=== PATIENT | male | born 1935 | race American Indian/Alaskan Native ===

== ENCOUNTER 2016-07-22 10:32 | Outpatient (CLI) | payer OTHER ==
--- NOTE | 2016-07-23 14:47 | Vascular Lab Report ---
Right Lower Extremity Venous Duplex Study: Reason for Exam: Right leg swelling and. Comments on the Right: All veins visualized are freely compressible without evidence of internal echogenicity. Flow is spontaneous and phasic throughout. No evidence of acute or chronic thrombus is seen in any of the vessels visualized. Comments on the Left: A limited duplex study was done of the proximal veins of the left lower extremity. All veins visualized are freely compressible without evidence of internal echogenicity. Flow is spontaneous and phasic throughout. No evidence of acute or chronic thrombus is seen in any of the vessels visualized. Impression: No evidence of acute or chronic deep venous thrombosis in the right lower extremity.
== END 2016-07-22 10:33 | disposition home or self-care (01) ==
LOC: VAS 10:32
PROVIDERS: ATTEND Hospitalist
DX: R22.41 Localized swelling, mass and lump, right lower limb (principal)

== ENCOUNTER 2017-11-03 10:12 | Emergency (ER) | payer MEDICARE, OTHER ==
--- NOTE | 2017-11-03 13:16 | Emergency Department Report ---
Radha Doc - Documentation Documentation: Patient presents to [facility] chiefly lower back pain that radiates into his legs bilaterally. Patient states he's had this back pain since February and recently had an MRI that comes emergency Department wanted to know what the MRI results are. Patient has stated MRI disc at hand but states he does not have the report. Patient has a follow-up appointment with his orthopedist surgeon on 11/18/2017 for those results. He denies any loss of stool or issues with his bladder. Also denies any numbness to his lower extremities. No abdominal pain. The plan is to have director of social media marketing come see the patient because he states he is not able to go home because of his back pain. Care will be turned over to the Midlevel provider with me as consultation
[2017-11-03] MEDS ORDERED: NORCO 5/325 PO ONE (14:49)
[2017-11-03] MEDS ORDERED: ZOFRAN ODT PO ONE (14:49)
--- NOTE | 2017-11-03 14:49 | Emergency Department Report ---
ED General Adult HPI - General Chief complaint: Back Pain/Injury Stated complaint: RT LEG PAIN/BACK Time Seen by Provider: 11/03/17 12:56 Source: patient, EMS Mode of arrival: Wheelchair Limitations: No Limitations - History of Present Illness Initial comments: Patient presents to the emergency department with a chief complaint of back pain that radiates into his legs. Patient states she's had back pain since February and has been seen by orthopedist surgeon with the MRI been done within the last week. Patient states that he is able to control his bladder and stool and denies any numbness of his legs. Patient states he comes to the ED today with the CD of his MRI to try to find out whats wrong. Patient has a follow-up appointment with his orthopedist surgeon on November 18 of this year. Not having relief with home medications -: Gradual Location: back Radiation: other (bilateral legs bilateral legs) Severity scale (0 -10): 5 Quality: sharp Improves with: medication, rest Worsens with: movement Associated Symptoms: denies other symptoms Treatments Prior to Arrival: none - Related Data Previous Rx's Medication Instructions Recorded Last Taken Type Aspirin EC [Aspirin Enteric Coated 81 mg PO QDAY #30 tablet. 03/22/16 Unknown Rx TAB] Diltiazem Cd [Cardizem CD] 240 mg PO QDAY #30 capsule 03/22/16 Unknown Rx Omeprazole 20 mg PO QDAY #30 capsule. 03/22/16 Unknown Rx HYDROcodone/APAP 5-325 [[place] 1 each PO Q6HR PRN #8 tablet 11/03/17 Unknown Rx 5/325] Allergies Allergy/AdvReac Type Severity Reaction Status Date / Time No Known Allergies Allergy Unverified 03/20/16 14:10 ED Review of Systems ROS: Stated complaint: RT LEG PAIN/BACK Other details as noted in HPI Comment: All other systems reviewed and negative Constitutional: denies: chills, fever Eyes: denies: eye pain, eye discharge, vision change ENT: denies: ear pain, throat pain Respiratory: denies: cough, shortness of breath, wheezing Cardiovascular: denies: chest pain, palpitations Endocrine: no symptoms reported Gastrointestinal: denies: abdominal pain, nausea, diarrhea Genitourinary: denies: urgency, dysuria Musculoskeletal: back pain. denies: joint swelling, arthralgia Skin: denies: rash, lesions Neurological: denies: headache, weakness, paresthesias Psychiatric: denies: anxiety, depression Hematological/Lymphatic: denies: easy bleeding, easy bruising ED Past Medical Hx - Past Medical History Previous Medical History?: Yes Hx Hypertension: Yes Hx GERD: Yes Hx Arthritis: Yes - Surgical History Past Surgical History?: Yes Additional Surgical History: Prostate - Social History Smoking Status: Current Every Day Smoker Substance Use Type: Alcohol - Medications Home Medications: Home Medications Medication Instructions Recorded Confirmed Last Taken Type Aspirin EC [Aspirin Enteric Coated 81 mg PO QDAY #30 tablet. 03/22/16 Unknown Rx TAB] Diltiazem Cd [Cardizem CD] 240 mg PO QDAY #30 capsule 03/22/16 Unknown Rx Omeprazole 20 mg PO QDAY #30 capsule. 03/22/16 Unknown Rx HYDROcodone/APAP 5-325 [[place] 1 each PO Q6HR PRN #8 tablet 11/03/17 Unknown Rx 5/325] ED Physical Exam - General Limitations: No Limitations ED Course Vital Signs 11/03/17 10:44 Temperature 97.7 F Pulse Rate 76 Respiratory 16 Rate Blood Pressure 135/91 O2 Sat by Pulse 97 Oximetry ED Medical Decision Making - Medical Decision Making When the patient was asked about his treatment go for today's visit to the emergency department he stated that he would like to be admitted to his back pain goes away. I discussed with patient that since his back pain has been present since February and he recently had a MRI results sent to his orthopedist surgeon that will probably do best course for follow-up. I did contact social science research assistant to provide the patient with resources for home physical therapy or other modalities that might be of help. Critical care attestation.: If time is entered above; I have spent that time in minutes in the direct care of this critically ill patient, excluding procedure time. ED Disposition Clinical Impression: Back pain Disposition: DC- TO HOME OR SELFCARE Is pt being admited?: No Does the pt Need Aspirin: No Condition: Stable Instructions: Back Pain (ED) Additional Instructions: Return if worse Prescriptions: HYDROcodone/APAP 5-325 [[place] 5/325] 1 each PO Q6HR PRN #8 tablet PRN Reason: Pain Referrals: GOLDIE JOHNSON MD [Staff Physician] - 3-5 Days Time of Disposition: 14:52
[2017-11-03 15:10] VITALS: BP 131/90
== END 2017-11-03 15:08 | disposition home or self-care (01) ==
LOC: ED 10:12
DX: M54.9 Dorsalgia, unspecified (principal); M79.604 Pain in right leg; M79.605 Pain in left leg; I10 Essential (primary) hypertension; K21.9 Gastro-esophageal reflux disease without esophagitis; M19.90 Unspecified osteoarthritis, unspecified site; F17.200 Nicotine dependence, unspecified, uncomplicated; Z79.899 Other long term (current) drug therapy; Z79.82 Long term (current) use of aspirin
CPT/HCPCS: 99283; Q0162

== ENCOUNTER 2020-11-28 17:00 | Emergency (ER) | payer OTHER ==
--- NOTE | 2020-11-28 17:38 | Event Note ---
ED Screening Note ED Screening Note: Patient presents for frequent falls He states today he fell and hit his head He is also complaining of low back pain that radiates down his left leg and left hip pain This initial assessment/diagnostic orders/clinical plan/treatment(s) is/are subject to change based on patients health status, clinical progression and re- assessment by fellow clinical providers in the ED. Further treatment and workup at subsequent clinical providers discretion. Patient/guardian urged not to elope from the ED as their condition may be serious if not clinically assessed and managed. Initial orders include: Labs, CT, x-ray
--- NOTE | 2020-11-28 18:02 | XRay Report ---
LEFT HIP 2 VIEW(S) INDICATION / CLINICAL INFORMATION: fall, left hip pain COMPARISON: None available. FINDINGS: BONES / JOINT(S): No acute fracture or subluxation. No significant arthritis. SOFT TISSUES: No significant abnormality. ADDITIONAL FINDINGS: None. Signer Name: Nba Melvin DO Signed: 11/28/2020 5:58 PM Workstation Name: [id number]
[2020-11-28 18:40] LABS: Basophils % (Auto) 0.3 % (0.0-1.8); Eosinophils % (Auto) 0.1 % (0.0-4.3); Hematocrit 32.8 % (35.5-45.6); Hemoglobin 10.5 gm/dl (11.8-15.2); Lymphocytes # (Auto) 0.6 K/mm3 (1.2-5.4); Lymphocytes % (Auto) 4.9 % (13.4-35.0); Mean Corpuscular HGB Conc 32 % (32-34); Mean Corpuscular Volume 75 fl (84-94); Monocytes # (Auto) 0.6 K/mm3 (0.0-0.8); Monocytes % (Auto) 4.9 % (0.0-7.3); Platelet Count 227 K/mm3 (140-440); Red Blood Count 4.36 M/mm3 (3.65-5.03); Red Cell Distribution Width 17.5 % (13.2-15.2)
--- NOTE | 2020-11-28 18:57 | Cat Scan Report ---
NONENHANCED CT SCAN OF THE HEAD: INDICATION / CLINICAL INFORMATION: 84 years Male; frequent falls, fell and hit head today. TECHNIQUE: Routine CT head without contrast. All CT scans at this location are performed using CT dos e reduction for ALARA by means of automated exposure control. COMPARISON: None. FINDINGS: BRAIN / INTRACRANIAL CONTENTS: No intracranial sequela from the trauma; no scalp hematoma; no air-flu id level in the visualized portions of the paranasal sinuses are middle ear cavity No acute hemorrhage, mass effect, midline shift, hydrocephalus, or acute, large territorial infarct. No chronic infarct or focal atrophy. Normal brain volume and ventricular/sulcal size for age. Conflu ent periventricular low-attenuation areas due to chronic small vessel disease CRANIOCERVICAL JUNCTION: No significant abnormality. ORBITS: No significant abnormality of visualized orbits. SINUSES / MASTOIDS: Mucosal thickening in the right ethmoid air cells ADDITIONAL FINDINGS: None. IMPRESSION: No intracranial sequela from the trauma; No acute focal parenchymal lesion Signer Name: Elke Topete MD Signed: 11/28/2020 6:52 PM Workstation Name: [id number]
[2020-11-28 19:00] LABS: Alanine Aminotransferase 6 units/L (7-56); Albumin 3.9 g/dL (3.9-5); BUN/Creatinine Ratio 17; Blood Urea Nitrogen 17 mg/dL (9-20); Calcium 10.3 mg/dL (8.4-10.2); Hemolysis Index 2
--- NOTE | 2020-11-28 19:01 | Cat Scan Report ---
CT LUMBAR SPINE WITHOUT CONTRAST HISTORY: Low back pain radiating to left leg COMPARISON: None TECHNIQUE: CT images of the lumbar spine were obtained without contrast. Sagittal and coronal reform ats were post-processed.All CT scans at this location are performed using CT dose reduction for ALARA by means of automated exposure control. CONTRAST: None. FINDINGS: Alignment: Normal. No traumatic subluxation. Vertebrae: No fracture; normal contour of the vertebral bodies Disc Spaces: Shallow disc bulge at the L1-L2, L2-L3 and L3-L4 disc levels; at L4-L5 disc level, broad -based bulging disc Facet Joints:No significant abnormality. Additional Findings: None IMPRESSION: 1. No significant abnormality. Signer Name: Elke Topete MD Signed: 11/28/2020 6:57 PM Workstation Name: [id number]
[2020-11-28 19:02] LABS: INR 1.02 (0.87-1.13)
[2020-11-28 19:03] LABS: Partial Thromboplastin Time 35.4 Sec. (24.2-36.6)
[2020-11-29] MEDS ORDERED: ACETAMINOPHEN 500 MG TAB PO ONE (00:16)
--- NOTE | 2020-11-29 07:12 | Emergency Department Report ---
ED Fall HPI - General Chief Complaint: Head Injury Stated Complaint: PAIN IN FOOT/NEEDS MED REFILL Time Seen by Provider: 11/28/20 17:36 Source: patient, EMS Mode of arrival: Wheelchair - History of Present Illness Initial Comments: Chief complaint: "I need my leg to be good." HPI: This is a 84-year-old male with history of SVT, GERD who presents with frequent falls. Patient has left leg left shoulder pain. Moderate pain. Patient use walker at home. He lives alone. His daughter is located in the [facility] area. He arrived via EMS. Additional history obtained from electronic medical record. Initial screening note documented: head trauma back pain hip pain. Patient locates pain in the left thigh left lower leg left foot. MD Complaint: fall -: Last night Fall From: standing Fall Witnessed: no Place Fall Occurred: home Loss of Consciousness: none Prolonged Down Time?: no Symptoms Prior to Fall: none Location: head Location - Extremities: Left: Shoulder, Leg Severity: moderate Context: tripped/slipped Associated Symptoms: denies - Related Data Previous Rx's Medication Instructions Recorded Last Taken Type Aspirin EC [Halfprin EC] 81 mg PO QDAY #30 tablet. 03/22/16 Unknown Rx Omeprazole 20 mg PO QDAY #30 capsule. 03/22/16 Unknown Rx dilTIAZem CD [Cardizem CD] 240 mg PO QDAY #30 capsule 03/22/16 Unknown Rx HYDROcodone/APAP 5-325 [[place] 1 each PO Q6HR PRN #8 tablet 11/03/17 Unknown Rx 5/325] traMADoL [Ultram 50 MG tab] 50 mg PO Q6HR PRN #20 tablet 11/29/20 Unknown Rx Allergies Allergy/AdvReac Type Severity Reaction Status Date / Time No Known Allergies Allergy Unverified 03/20/16 14:10 ED Review of Systems ROS: Stated complaint: PAIN IN FOOT/NEEDS MED REFILL Other details as noted in HPI Comment: All other systems reviewed and negative Constitutional: denies: fever, malaise Respiratory: denies: cough, shortness of breath Cardiovascular: denies: chest pain Musculoskeletal: arthralgia, myalgia Neurological: denies: headache ED Past Medical Hx - Past Medical History Previous Medical History?: Yes Hx Hypertension: Yes Hx GERD: Yes Hx Arthritis: Yes - Surgical History Past Surgical History?: Yes Additional Surgical History: Prostate - Social History Smoking Status: Current Every Day Smoker Substance Use Type: Alcohol - Medications Home Medications: Home Medications Medication Instructions Recorded Confirmed Last Taken Type Aspirin EC [Halfprin EC] 81 mg PO QDAY #30 tablet. 03/22/16 Unknown Rx Omeprazole 20 mg PO QDAY #30 capsule. 03/22/16 Unknown Rx dilTIAZem CD [Cardizem CD] 240 mg PO QDAY #30 capsule 03/22/16 Unknown Rx HYDROcodone/APAP 5-325 [[place] 1 each PO Q6HR PRN #8 tablet 11/03/17 Unknown Rx 5/325] traMADoL [Ultram 50 MG tab] 50 mg PO Q6HR PRN #20 tablet 11/29/20 Unknown Rx ED Physical Exam - General Limitations: No Limitations General appearance: alert, in no apparent distress - Head Head exam: Present: atraumatic, normocephalic - Eye Eye exam: Present: normal appearance - ENT ENT exam: Present: mucous membranes moist - Neck Neck exam: Present: normal inspection, full ROM - Respiratory Respiratory exam: Present: normal lung sounds bilaterally. Absent: respiratory distress, wheezes, rales, rhonchi - Cardiovascular Cardiovascular Exam: Present: regular rate, normal rhythm, normal heart sounds. Absent: systolic murmur, diastolic murmur, rubs, gallop - GI/Abdominal GI/Abdominal exam: Present: soft. Absent: distended, tenderness, guarding, rebound - Extremities Exam Extremities exam: Present: normal inspection - Expanded Lower Extremity Exam Left Hip exam: Present: normal inspection, full ROM. Absent: tenderness, swelling Upper Leg exam: Present: normal inspection, full ROM Knee exam: Present: normal inspection Lower Leg exam: Present: normal inspection, full ROM Ankle exam: Present: normal inspection, full ROM Foot/Toe exam: Present: normal inspection, full ROM - Back Exam Back exam: Present: normal inspection - Neurological Exam Neurological exam: Present: alert, oriented X3 - Psychiatric Psychiatric exam: Present: normal affect, normal mood - Skin Skin exam: Present: warm, dry, intact, normal color. Absent: rash - Other Other exam information: 5/5 strength in the left lower extremity intact patient is able to flex extend actively at the left hip left knee left ankle ED Medical Decision Making - Lab Data Result diagrams: 11/28/20 18:09 11/28/20 18:09 - Radiology Data Radiology results: report reviewed Patient Name: ESTEFANY FARIA Gender: Male Date of : 1935 Referring Provider: DEBORAH EID Organization: [facility] Accession Number: [id number] Requested Date: November 28, 2020 17:36 Report Status: Final Requested Procedure: 1 Procedure Description: CT head/brain wo con Modality: CT Findings Reporting MD: Elke Topete Dictation Time: November 28, 2020 17:52 Hand Box Coverer: Not available Form Grader Date: NONENHANCED CT SCAN OF THE HEAD: INDICATION / CLINICAL INFORMATION: 84 years Male; frequent falls, fell and hit head today. TECHNIQUE: Routine CT head without contrast. All CT scans at this location are performed using CT dose reduction for ALARA by means of automated exposure control. COMPARISON: None. FINDINGS: BRAIN / INTRACRANIAL CONTENTS: No intracranial sequela from the trauma; no scalp hematoma; no air-fluid level in the visualized portions of the paranasal sinuses are middle ear cavity No acute hemorrhage, mass effect, midline shift, hydrocephalus, or acute, large territorial infarct. No chronic infarct or focal atrophy. Normal brain volume and ventricular/sulcal size for age. Confluent periventricular low-attenuation areas due to chronic small vessel disease CRANIOCERVICAL JUNCTION: No significant abnormality. ORBITS: No significant abnormality of visualized orbits. SINUSES / MASTOIDS: Mucosal thickening in the right ethmoid air cells ADDITIONAL FINDINGS: None. IMPRESSION: No intracranial sequela from the trauma; No acute focal parenchymal lesio Patient Name: ESTEFANY FARIA Gender: Male Date of : 1935 Referring Provider: DEBORAH EID Organization: [facility] Accession Number: [id number] Requested Date: November 28, 2020 17:36 Report Status: Final Requested Procedure: 1 Procedure Description: CT lumbar spine wo con Modality: CT Findings Reporting MD: Elke Topete Dictation Time: November 28, 2020 17:57 Hand Box Coverer: Not available Form Grader Date: CT LUMBAR SPINE WITHOUT CONTRAST HISTORY: Low back pain radiating to left leg COMPARISON: None TECHNIQUE: CT images of the lumbar spine were obtained without contrast. Sagittal and coronal reformats were postprocessed.All CT scans at this location are performed using CT dose reduction for ALARA by means of automated exposure control. CONTRAST: None. FINDINGS: Alignment: Normal. No traumatic subluxation. Vertebrae: No fracture; normal contour of the vertebral bodies Disc Spaces: Shallow disc bulge at the L1-L2, L2-L3 and L3-L4 disc levels; at L4-L5 disc level, broad-based bulging disc Facet Joints:No significant abnormality. Additional Findings: None IMPRESSION: 1. No significant abnormality. Signer Name: Elke Topete MD Signed: 11/28/2020 5:57 PM Workstation Name: [id number] Patient Name: ESTEFANY FARIA Gender: Male Date of : 1935 Referring Provider: DEBORAH EID Organization: [facility] Accession Number: [id number] Requested Date: November 28, 2020 17:36 Report Status: Final Requested Procedure: 1 Procedure Description: XR hip 2-3V LT Modality: XR Findings Reporting MD: Nba Melvin Dictation Time: November 28, 2020 16:58 Hand Box Coverer: Not available Form Grader Date: LEFT HIP 2 VIEW(S) INDICATION / CLINICAL INFORMATION: fall, left hip pain COMPARISON: None available. FINDINGS: BONES / JOINT(S): No acute fracture or subluxation. No significant arthritis. SOFT TISSUES: No significant abnormality. ADDITIONAL FINDINGS: None. Signer Name: Nba Melvin DO Signed: 11/28/2020 4:58 PM Workstation Name: [id number] - Medical Decision Making Left leg pain: Osteoarthritis likely no evidence of acute injury patient has intact strength intact range of motion Head injury: CT head obtained due to advanced age without acute intracranial normality Sciatica is a consideration, CT imaging lumbar spine unremarkable. Patient given referral to internal medicine physician orthopedic surgeon. He is discharged home. Screening labs unremarkable nonspecific leukocytosis chemistry within normal limits Critical care attestation.: If time is entered above; I have spent that time in minutes in the direct care of this critically ill patient, excluding procedure time. ED Disposition Clinical Impression: Osteoarthritis, Head injury Disposition: 01 HOME / SELF CARE / HOMELESS Is pt being admited?: No Does the pt Need Aspirin: No Condition: Stable Instructions: Osteoarthritis, Fall Prevention in the Home, Adult, [id number] Prescriptions: traMADoL [Ultram 50 MG tab] 50 mg PO Q6HR PRN #20 tablet PRN Reason: Pain Referrals: PADMINI CARY MD [Staff Physician] - 3-5 Days SALLIE VENCES MD [Staff Physician] - 3-5 Days
[2020-11-29 07:34] VITALS: BP 157/63
== END 2020-11-29 07:33 | disposition home or self-care (01) ==
LOC: ED 17:00
DX: S09.90XA Unspecified injury of head, initial encounter (principal); M19.90 Unspecified osteoarthritis, unspecified site; I10 Essential (primary) hypertension; K21.9 Gastro-esophageal reflux disease without esophagitis; Z98.890 Other specified postprocedural states; F17.200 Nicotine dependence, unspecified, uncomplicated; W19.XXXA Unspecified fall, initial encounter; Y93.89 Activity, other specified; Y92.89 Other specified places as the place of occurrence of the external cause; Y99.8 Other external cause status
CPT/HCPCS: 36415; 70450; 72131; 80053; 85025; 85610; 85730; 99284